=== PATIENT | male | born 2000 | race African-American/Black ===

== ENCOUNTER 2024-06-16 00:07 | Emergency (ER) | payer OTHER ==
[~2024-06-16] VITALS: Ht 175.3 cm; Wt 108.2 kg
[2024-06-16 00:18] VITALS: TEMP 97.3
[2024-06-16] MEDS: ALBUTEROL 90 MCG/ACT 8GM HFA INHALER INH ONE (03:55)
[2024-06-16] MEDS ORDERED: MEDR4PAK PO (03:57)
[2024-06-16] MEDS ORDERED: VENTAER INH (03:58)
[2024-06-16 04:30] VITALS: BP 120/57; O2SAT 99
== END 2024-06-16 05:11 | disposition home or self-care (01) ==
LOC: EDBD 00:07 → M ED 00:07
DX: J45.901 Unspecified asthma with (acute) exacerbation (principal)